=== PATIENT | female | born 1970 | race Caucasian/White ===

== ENCOUNTER 2020-05-12 04:12 | Emergency (ER) | payer MEDICAID ==
[~2020-05-12] VITALS: Ht 165.1 cm; Wt 104.3 kg
[2020-05-12 04:18] VITALS: Ht 165.1 cm; Wt 104.3 kg
[2020-05-12 04:40] VITALS: BP 166/81
== END 2020-05-12 04:41 | disposition home or self-care (01) ==
LOC: ED 04:12
DX: M62.830 Muscle spasm of back (principal); I10 Essential (primary) hypertension